=== PATIENT | female | born 1940 | race Asian ===

== ENCOUNTER → 2024-08-20 | Outpatient (CLI) | payer MEDICARE, MEDICAID, SELFPAY ==
[2024-08-20 11:23] LABS: Basophils # (Auto) 0.1 Thou/mm3 (0.0-0.2); Basophils % (Auto) 1 % (0-2.5); Eosinophils # (Auto) 0.2 Thou/mm3 (0.0-0.5); Eosinophils % (Auto) 3 % (0-10); Hematocrit 43.5 % (36.0-46.0); Hemoglobin 14.3 g/dL (12.0-16.0); Immature Granulocytes % (Auto) 0 % (0-0); Lymphocytes % (Auto) 31 % (10-50); Mean Corpuscular HGB Conc 32.9 g/dl (31.0-37.0); Mean Corpuscular Hemoglobin 28.2 pg (25.0-35.0); Mean Corpuscular Volume 86 fL (80-100); Monocytes # (Auto) 0.6 Thou/mm3 (0.0-0.8); Monocytes % (Auto) 10 % (0-12); Neutrophils # (Auto) 3.8 Thou/mm3 (1.8-7.7); Neutrophils % (Auto) 56 % (37-80); Nucleated Red Blood Cell % 0 /100 WBC (0); Platelet Count 238 Thou/mm3 (140-440); RDW Standard Deviation 38.1 fL (36.4-46.3); Red Blood Count 5.07 Miln/mm3 (4.00-5.20); White Blood Count 6.7 Thou/mm3 (3.6-11.0)
[2024-08-20 11:37] LABS: Glucose Estimated Average 183 mg/dL (80-131)
[2024-08-20 11:45] LABS: Vitamin D 25 Hydroxy Total 51.7 ng/mL (7.3-40.2)
[2024-08-20 11:52] LABS: Alanine Aminotransferase 10 U/L (10-49); Albumin, Serum 4.9 gm/dL (3.4-4.8); Albumin/Globulin Ratio 1.5 (1.2-2.2); Alkaline Phosphatase 61 U/L (46-116); Anion Gap 10 (7-16); Aspartate Amino Transferase 27 U/L (0-34); BUN/Creatinine Ratio 23 Ratio (12-20); Bilirubin,Total 0.7 mg/dL (0.3-1.2); Blood Urea Nitrogen 18 mg/dL (9-23); Calcium 9.9 mg/dL (8.3-10.6); Calcium (Corrected) 9.9 mg/dL (8.5-10.1); Carbon Dioxide 28.4 mMol/L (20.0-31.0); Chloride 99 mMol/L (98-107); Creatinine (Component) 0.8 mg/dL (0.6-1.3); Globulin 3.2 gm/dL (2.3-3.5); Glucose 164 mg/dL (74-106); Osmolality,Calculated 279 (275-295); Potassium 4.6 mMol/L (3.4-5.1); Sodium 137 mMol/L (136-145); Thyroid Stimulating Hormone 1.44 uIU/mL (0.55-4.78); Total Protein 8.1 gm/dL (5.7-8.2); Uric Acid 6.9 mg/dL (3.1-7.8); eGFR > 60 See Note
[2024-08-20 12:13] LABS: Creatinine MALB Rnd Ur 131 mg/dL (30-125); Microalbumin Creat Ratio 17 mg/gCrea (<30); Microalbumin, Random Urine 22 mg/L (0-300)
== END | disposition home or self-care (01) ==
LOC: COPL 10:08
PROVIDERS: PCP Internal Medicine Hematology & Oncology; Referring Provider Internal Medicine Hematology & Oncology; Visit Provider Internal Medicine Hematology & Oncology
DX: E03.9 Hypothyroidism, unspecified (principal); E55.9 Vitamin D deficiency, unspecified; E78.5 Hyperlipidemia, unspecified; E79.0 Hyperuricemia without signs of inflammatory arthritis and tophaceous disease; E11.9 Type 2 diabetes mellitus without complications
CPT/HCPCS: 36415; 80053; 82043; 82306; 82570; 83036; 84439; 84443; 84550; 85025

== ENCOUNTER 2024-09-04 07:39 | Emergency (ER) | payer MEDICARE, MEDICAID, SELFPAY ==
[2024-09-04 07:40] VITALS: BMI 25.4
[2024-09-04 08:05] VITALS: BP 192/68; BP 197/72; PULSE 77; RESP 20; TEMP 36.9; O2SAT 97; BMI 24.5
--- NOTE | 2024-09-04 08:27 | PD.EDFMALE ---
ED Female Urogenital RME/HPI General Chief complaint: Urogenital-Female Stated complaint: HEMATURIA Arrival date/time: 09/04/24 07:39 RME / HPI RME / HPI Narrative: Patient is a 84-year-old [place] female with past medical history of type 2 diabetes, hypertension, and hyperlipidemia who presents to the ED on 09/04/2024 due to 2 days of hematuria, dysuria, and urinary frequency. Son-in-law is present and assists in providing interpretation. Patient endorses urinating 4-5 times during the night with burning sensation the last couple nights when usually she urinates twice during the night. She reports seeing a few drops of blood and tenderness when wiping after urinating. Denies colleen bloody red urine, urine is yellow but cloudy. Patient tried taking a [place] herbal supplement that is used to help with urination which slightly helped with the pain. Patient denies any nausea, vomiting, fevers, chest pain, shortness of breath, flank pain, or abdominal pain. Patient has had one episode of similar symptoms one year ago, was diagnosed with UTI and symptoms improved after completing antibiotics. On review of the chart last urine culture grew E. coli sensitive to most antibiotics. MD Complaint: dysuria Onset (ago): day(s) Location: labia Radiation: non-radiating Severity: similar to previous episodes Quality: burning Duration: constant Relieving factors: medication ([place]ian herbal supplement) Exacerbating factors: urination and other (wiping with toilet paper) Urinary Symptoms: dysuria, frequency, hematuria and difficulty urinating Associated symptoms: denies other symptoms Related Data Home Medications ?Medication ?Instructions ?Recorded ?Confirmed Levothyroxine * (SYNTHROID *) 50 mg PO QDAY Thyroid ##0 01/17/15 Pravastatin Sodium 40 mg PO QDAY High Cholesterol ##0 01/17/15 Beta-Carotene(A) W-C & E (E-400 1 ea PO #0 tabs 01/25/15 C-500 & Beta Carotene) Calcium Carbonate/Vitamin D3 ##0 01/25/15 (Calcarb 600 W-Vitamin D Tab) Prasterone (Dhea) (Dhea 25) 25 mg PO #0 caps 01/25/15 SOYA LEATHIN 1,200 mg ##0 01/25/15 bilberry (vaccinium myrtillus) 500 ##0 01/25/15 mg capsule (bilberry) milk thistle 500 mg capsule 200 mg PO TID #0 caps 01/25/15 Allergies Allergy/AdvReac Type Severity Reaction Status Date / Time NKA* Allergy Uncoded 09/04/24 07:44 Review of Systems Review of Systems Systems Reviewed: All systems reviewed, normal except as documented Past Medical History Past Medical History Comments PMH COMMENT: Past Medical History: Type 2 diabetes, hyperlipidemia, hypertension Family History: Denies family history of cardiac disorders, kidney problems Surgical History: No prior surgeries Social History: Denies history of smoking, denies current alcohol use, denies recreational drug use Current Medications: Metformin, blood pressure medication, cholesterol medication (Source: Patient, does not remember names of meds) Allergies: No known drug allergies ED Exam Narrative Physical exam: Physical Exam General: Awake and in no acute distress. Conversational and non-toxic appearing. HEENT: Normocephalic, atraumatic, mucous membranes moist. Heart: Regular rate and rhythm, 2/6 systolic ejection murmur heard best at the right upper sternal border. Lungs: Clear to auscultation with no wheezing or crackles. Abdomen: Soft, nondistended, nontender, positive bowel sounds. ?No guarding or rebound tenderness. Neurologic: Alert and oriented x3, no gross neurological deficit, and patient able to move all 4 extremities. Extremities: No edema. Skin: No rash or ecchymoses. Course Quality Measures none Orders Category Date Time Status Urinalysis Stat Lab 09/04/24 09:03 Completed Urine Culture Stat Lab 09/04/24 09:03 Completed Vital Signs Vital signs: Vital Signs Temperature 98.4 F 09/04/24 08:05 Pulse Rate 77 09/04/24 08:05 Respiratory Rate 20 09/04/24 08:05 Blood Pressure 197/72 H 09/04/24 08:05 Pulse Oximetry (%) 97 09/04/24 08:05 Oxygen Delivery Method Room Air 09/04/24 08:05 Urogenital - Female MDM Narrative MDM Narrative:: Patient presents with acute symptoms of dysuria, mild hematuria, and urinary frequency that is similar in presentation to an episode about 1 year ago when the patient had a UTI. On examination the patient is comfortable and not complaining of any pain, and abdominal, , and flank areas are nontender. Urinalysis returned showing turbid colored urine with 1+ protein, 4+ glucose, 3+ blood, positive leukocyte esterase, 192 RBCs, 342 WBCs, but no bacteria. Nephrolithiasis was less likely given that the patient does not have significant pain. Pyelonephritis unlikely given lack of systemic symptoms. As the patient's clinical symptoms are most consistent with a UTI, she will be prescribed a 5-day course of nitrofurantoin. Urine culture was sent due to the patient's age, history of diabetes, and history of previous UTIs. She was instructed to make an appointment for her PCP to follow the urine culture results in the next 1-2 weeks. Patient data External records reviewed:: [facility] [place] previous records Clinical information provided by:: patient and family Social determinants that could affect healthcare access:: none Patient has the following chronic illnesses:: As above How is presenting disease/condition affected by chronic disease/condition?: exacerbated by Evaluation data The following diagnostics were reviewed and interpreted by me:: lab results Lab and/or radiology exams considered but not ordered:: CMP, CBC but patient does not have systemic symptoms. Interpretation Summary: UA showing UTI. Medications / Prescriptions Medications or Prescriptions considered but not ordered:: Patient did not require any pain medications. Medication administrations:: None Consultations Consultation(s) initiated? (list below): No Diagnosis Urogenital Female Differential Diagnosis: urinary tract infection, bacterial vaginosis, vaginitis and cystitis Most likely diagnosis given after review of the tests above:: Acute cystitis with hematuria, UTI Admission Indicated Admission indicated?: not indicated Admission Request Was there a request for admission?: No Disposition Plan Disposition Plan: Discharge Discharge Attestation Discharge Attestation: The patient and all family members were given an opportunity to ask questions and understood the discharge instructions. Discharge instructions specifically effects, indications for sooner follow up or return to the emergency department, and the expected course of current diagnosis. Patient condition: Stable Discharge Plan Plan Patient Disposition: HOME (Self Care) Patient condition on transfer: Stable Prescriptions/Referrals Prescriptions/Med Rec: No Action Levothyroxine * (SYNTHROID *) 50 MCG tablet 50 mg PO QDAY Qty: 0 Pravastatin Sodium 40 MG tablet 40 mg PO QDAY Qty: 0 milk thistle 500 MG capsule 200 mg PO TID Qty: 0 bilberry (vaccinium myrtillus) [bilberry] 500 MG capsule Qty: 0 Beta-Carotene(A) W-C & E (E-400 C-500 & Beta Carotene) 1 EACH tablet 1 ea PO Qty: 0 Calcium Carbonate/Vitamin D3 (Calcarb 600 W-Vitamin D Tab) 1 TAB tablet Qty: 0 Prasterone (Dhea) (Dhea 25) 25 MG capsule 25 mg PO Qty: 0 SOYA LEATHIN 1,200 mg Qty: 0 Referrals: No Primary/Family,Physician [Primary Care Provider] - In 1 week Problem List Clinical Impression: Acute cystitis with hematuria Patient/Caregiver Discharge Instructions Discharge Activity: activity as tolerated and resume usual activities Education Materials: Anatomy of the Female Urinary Tract, Understanding Urinary Tract ..., ED Hematuria, ED CYSTITIS Female Adult Additional Instructions: You have been diagnosed with a UTI. You were prescribed an antibiotic medication to treat the infection. Please pick it up at the pharmacy. The medication should be taken twice a day, once in the morning and once at night, for a total of 5 days. Please make an appointment with your primary care doctor to follow up with the result of the urine culture done in the hospital within the next 1-2 weeks. Return to your doctor if you continue to have symptoms. Print Language: Yi Stand Alone Forms: [employer] Award Info., Patient Portal Info Letter Attestation Attestation The patient was seen by the PGY 2. I, the supervising physician, also encountered and examined the patient and remained present during the entire ER visit. With the PGY 2 we formulated the encounter, workup, management, treatment, and medical decision making. I agree with the plan and documentation.
[2024-09-04 09:16] VITALS: BP 197/73; PULSE 73; RESP 16; TEMP 36.3; O2SAT 97
[2024-09-04 09:16] LABS: Collection Type, Urine Clean Catch
[2024-09-04 09:40] LABS: Bilirubin,Urine Negative (Negative); Blood,Urine 3+ (Negative); Clarity,Urine Turbid (Clear/Hazy); Color,Urine Yellow (Lt Yel-Yel); Glucose, Urine 4+ (Negative); Ketones,Urine Trace (Negative); Leukocyte Esterase,Urine Positive (Negative); Nitrite,Urine Negative (Negative); Protein,Urine 1+ (Neg - Trace); RBC,Urine 192 /hpf (0-3); Specific Gravity,Urine 1.019 (1.001-1.035); Squamous Epithelial Cell,Urine < 1 /hpf (0-5); Urobilinogen,Urine Negative mg/dL (0.0-1.0); WBC,Urine 342 /hpf (0-5)
[2024-09-04 10:30] VITALS: PULSE 73; RESP 16; TEMP 36.3; O2SAT 97
== END 2024-09-04 10:30 | disposition home or self-care (01) ==
PROVIDERS: Student in an Organized Health Care Education/Training Program; Emergency Provider Emergency Medicine
DX: N30.01 Acute cystitis with hematuria (principal); E11.9 Type 2 diabetes mellitus without complications; I10 Essential (primary) hypertension; E78.5 Hyperlipidemia, unspecified
CPT/HCPCS: 81001; 87077; 87086; 87186; 99283

== ENCOUNTER → 2024-09-10 | Outpatient (CLI) | payer MEDICARE, MEDICAID, SELFPAY ==
--- NOTE | 2024-09-10 13:30 | XR_ITS ---
Examination: Abdomen sonogram, complete Date and time of exam: September 10, 2024 1359 hrs. Technique: Multiple real-time grayscale transabdominal sonographic images abdomen Indications: Hematuria episodes beginning 2 weeks ago. Findings: Normal gallbladder Normal common bile duct 0.3 cm Pancreatic head 2.1 cm Aorta not enlarged Liver 12.8 cm fatty liver 13 mm liver cyst Normal hepatopedal portal venous flow Patent IVC Right kidney 10.7 cm renal cortex 1.7 cm, 12 mm lower pole cyst Left kidney 12.2 cm cortex 1.3 cm Midpole 24 mm cyst lateral 14 mm cyst, moderate bilateral renal parenchymal scar formation Spleen 6.3 cm. Impression: Bilateral renal cortical thinning Moderate bilateral renal parenchymal scar formation No renal calculi, no hydronephrosis, no renal solid mass lesion
--- NOTE | 2024-09-10 14:00 | XR_ITS ---
Examination: Urinary bladder sonography complete Technique: Grayscale sonographic images urinary bladder with color flow analysis Exam date and time: September 10, 2024 1348 hrs. Indications: Hematuria beginning 2 weeks ago. Findings: No bladder mass or bladder calculi Bladder prevoid volume 71 cc postvoid volume 7 cc Minimal thickening of urinary bladder wall Impression: Minimal thickening of urinary bladder wall, consider cystitis
== END | disposition home or self-care (01) ==
PROVIDERS: PCP Internal Medicine Hematology & Oncology; Referring Provider Internal Medicine Hematology & Oncology; Visit Provider Internal Medicine Hematology & Oncology
DX: N32.89 Other specified disorders of bladder (principal); N28.89 Other specified disorders of kidney and ureter
CPT/HCPCS: 76700; 76857

== ENCOUNTER → 2025-02-04 | Outpatient (CLI) | payer MEDICARE, MEDICAID, SELFPAY ==
[2025-02-04 10:08] LABS: Basophils # (Auto) 0.1 Thou/mm3 (0.0-0.2); Basophils % (Auto) 1 % (0-2.5); Eosinophils # (Auto) 0.2 Thou/mm3 (0.0-0.5); Eosinophils % (Auto) 2 % (0-10); Hematocrit 39.6 % (36.0-46.0); Hemoglobin 13.9 g/dL (12.0-16.0); Immature Granulocytes Auto 0.02 Thou/mm3 (0.00-0.00); Lymphocytes # (Auto) 2.3 Thou/mm3 (1.0-4.8); Lymphocytes % (Auto) 31 % (10-50); Mean Corpuscular HGB Conc 35.1 g/dl (31.0-37.0); Mean Corpuscular Hemoglobin 28.5 pg (25.0-35.0); Mean Corpuscular Volume 81 fL (80-100); Monocytes # (Auto) 0.7 Thou/mm3 (0.0-0.8); Monocytes % (Auto) 10 % (0-12); Neutrophils # (Auto) 4.1 Thou/mm3 (1.8-7.7); Neutrophils % (Auto) 56 % (37-80); Nucleated Red Blood Cell # 0.00 Thou/mm3 (0.00-0.00); Nucleated Red Blood Cell % 0 /100 WBC (0); Platelet Count 266 Thou/mm3 (140-440); RDW Standard Deviation 37.2 fL (36.4-46.3); Red Blood Count 4.87 Miln/mm3 (4.00-5.20); White Blood Count 7.3 Thou/mm3 (3.6-11.0)
[2025-02-04 10:21] LABS: Glucose Estimated Average 189 mg/dL (80-131); Hemoglobin A1C 8.2 % Hgb (4.8-6.0)
[2025-02-04 10:30] LABS: Creatinine MALB Rnd Ur 173 mg/dL (30-125); Microalbumin Creat Ratio 39 mg/gCrea (<30); Microalbumin, Random Urine 68 mg/L (0-300)
[2025-02-04 10:34] LABS: Vitamin D 25 Hydroxy Total 52.0 ng/mL (7.3-40.2)
[2025-02-04 10:47] LABS: Alanine Aminotransferase 9 U/L (10-49); Albumin, Serum 4.8 gm/dL (3.4-4.8); Albumin/Globulin Ratio 1.4 (1.2-2.2); Alkaline Phosphatase 84 U/L (46-116); Anion Gap 11 (7-16); Aspartate Amino Transferase 35 U/L (0-34); BUN/Creatinine Ratio 14 Ratio (12-20); Bilirubin,Direct 0.2 mg/dL (0.0-0.3); Bilirubin,Total 0.6 mg/dL (0.3-1.2); Blood Urea Nitrogen 15 mg/dL (9-23); Calcium 9.7 mg/dL (8.3-10.6); Calcium (Corrected) 9.7 mg/dL (8.5-10.1); Carbon Dioxide 24.5 mMol/L (20.0-31.0); Cardiac Risk Estimate 3.1 RATIO (3.7-5.6); Chloride 95 mMol/L (98-107); Cholesterol 150 mg/dL (132-200); Creatinine (Component) 1.1 mg/dL (0.6-1.3); Free T4 (Free Thyroxine) 1.22 ng/dL (0.89-1.76); Globulin 3.4 gm/dL (2.3-3.5); Glucose 188 mg/dL (74-106); HDL Cholesterol 48 mg/dL (40-60); LDL Cholesterol,Calculated 79 mg/dL (0-130); Osmolality,Calculated 266 (275-295); Potassium 4.8 mMol/L (3.4-5.1); Sodium 130 mMol/L (136-145); Thyroid Stimulating Hormone 3.80 uIU/mL (0.55-4.78); Total Protein 8.2 gm/dL (5.7-8.2); Triglycerides 116 mg/dL (30-150); Uric Acid 8.4 mg/dL (3.1-7.8); eGFR 49 See Note
== END | disposition home or self-care (01) ==
PROVIDERS: PCP Internal Medicine Hematology & Oncology; Referring Provider Internal Medicine Cardiovascular Disease; Visit Provider Internal Medicine Cardiovascular Disease
DX: I10 Essential (primary) hypertension (principal); E78.5 Hyperlipidemia, unspecified; E13.9 Other specified diabetes mellitus without complications; E03.9 Hypothyroidism, unspecified; E55.9 Vitamin D deficiency, unspecified; E79.0 Hyperuricemia without signs of inflammatory arthritis and tophaceous disease
CPT/HCPCS: 36415; 80053; 80061; 82043; 82248; 82306; 82570; 83036; 84439; 84443; 84550; 85025